=== PATIENT | male | born 1975 | race Two or more races ===

== ENCOUNTER → 2016-10-06 | Outpatient (CLI) | payer OTHER | LOC: BMCIMAGING 09:31 | PROVIDERS: ATTEND Family Medicine | DX: M79.605 Pain in left leg (principal) ==

== ENCOUNTER 2016-10-27 10:15 | Observation (INO) | payer OTHER ==
[~2016-10-27 10:15] MED LIST: ACETAMINOPHEN 500 MG TAB PO ONE; PREGABALIN 150 MG CAP PO ONE; SCOPOLAMINE HYDROBROMIDE 1.5 MG PATCH TD ONE; ceFAZolin 2 GM/DEXTROSE 100 ML IV ONE
[2016-10-27] MEDS ORDERED: LR 1,000 ML IV ONE (10:37)
[2016-10-27] MEDS ORDERED: PREGABALIN 150 MG CAP ONE (10:39)
[2016-10-27] MEDS ORDERED: ACETAMINOPHEN 500 MG TAB ONE (10:39)
[2016-10-27] MEDS ORDERED: CEFAZOLIN 2 GM/DEXTROSE/100 ML BAG IV ONE (10:40)
[2016-10-27] MEDS ORDERED: SCOPOLAMINE HYDROBROMIDE 1.5 MG PATCH TD ONE (10:40)
[2016-10-27] MEDS ORDERED: EPINEPHrine 30 MG/30 ML MDV ONE (12:03)
[2016-10-27] MEDS ORDERED: BUPIVACAINE/EPI 0.25% 30 ML SDV ONE (12:03)
[2016-10-27] MEDS ORDERED: PROPOFOL 200 MG/20 ML VIAL ONE (12:06)
[2016-10-27] MEDS ORDERED: ROCURONIUM 50 MG/5 ML VIAL ONE (12:07)
[2016-10-27] MEDS ORDERED: HYDROmorphONE/DILAUDID 2 MG/ML INJ ONE (12:08)
[2016-10-27] MEDS ORDERED: LIDOCAINE 2% 5 ML SDV ONE (12:08)
[2016-10-27] MEDS ORDERED: MIDAZOLAM 2 MG/2 ML VIAL ONE (12:29)
[2016-10-27] MEDS ORDERED: fentaNYL 250 MCG/5 ML INJ ONE (16:49)
[2016-10-27] MEDS ORDERED: DEXAMETHASONE 4 MG/ML VIAL ONE ×2 (17:29)
[2016-10-27] MEDS ORDERED: ONDANSETRON 4 MG/2 ML VIAL ONE ×2 (17:29→19:35)
[2016-10-27] MEDS ORDERED: SUGAMMADEX SODIUM 200 MG/2 ML VIAL IVP ONE (17:38)
[2016-10-27] MEDS ORDERED: fentaNYL 100 MCG/2 ML INJ ONE (19:01)
[2016-10-27] MEDS ORDERED: HYDROmorphONE/DILAUDID 1 MG/ML SYR ONE (19:42)
[2016-10-27] MEDS ORDERED: ONDANSETRON DISINTEGRATING 4 MG TAB PO PRN (20:58)
[2016-10-27] MEDS ORDERED: ONDANSETRON 4 MG/2 ML VIAL IVP PRN (20:58)
[2016-10-27] MEDS ORDERED: DIAZEPAM 2 MG TAB PO PRN (20:59)
[2016-10-27] MEDS: OXYCODONE/APAP 5/325 TAB PO PRN (22:13)
[2016-10-27] MEDS: NAPROXEN SODIUM 220 MG TAB PO SCH (22:14)
[2016-10-28] MEDS: OXYCODONE/APAP 5/325 TAB PO PRN ×2 (02:01→05:56)
[2016-10-28 03:08] VITALS: O2SAT 96
[2016-10-28] MEDS: NAPROXEN SODIUM 220 MG TAB PO SCH (08:22)
[2016-10-28 08:34] VITALS: BP 104/61; PULSE 60; RESP 14; TEMP 98.1
== END 2016-10-28 11:08 | disposition home or self-care (01) ==
LOC: FSGY 10:15 → F3N 20:22
PROVIDERS: ADMIT Orthopaedic Surgery Sports Medicine; ATTEND Orthopaedic Surgery Sports Medicine
PROC: 0SQ94ZZ Repair Right Hip Joint, Percutaneous Endoscopic Approach (ICD-10-PCS; principal; 2016-10-27 11:30)
DX: M25.851 Other specified joint disorders, right hip (principal); M24.151 Other articular cartilage disorders, right hip
CPT/HCPCS: 29914; 29916; 76001; C1769; G0378; J0690; J1100; J1170; J2250; J2405; J2704; J3010

== ENCOUNTER 2017-06-15 11:34 | Observation (INO) | payer OTHER ==
--- NOTE | 2017-06-11 10:43 | PDGENHP ---
History and Physical - Chief Complaint Left Hip Pain - History of Present Illness 1. Bilateral~Femoroacetabular impingement (MELLO) Mixed type HISTORY OF PRESENT ILLNESS: Yumikois a 42 y.o.~very ~active male~who I have had the pleasure to consult on today. I have enjoyed meeting him. He~lives in [place]. ~[employer] as a [employer]. ~He~is ; he~has 1 daugher. ~Yumikoenjoys Running , Soccer. Shyam's bilateral~hip pain R=L, started 3 years ago, with no~recalled trauma or injury. He has had clicking for 10 years. No~previous complaints. Yumikodoes not have~a known history of hip dysplasia. Presentation today is of anterior, lateral, and posterior bilateral~hip pain. ~ The hip does~wake him~at night and does~click and catch on him. Sitting can be uncomfortable when he goes from sitting to standing. Yumikodoes~report suffering from lower back pain episodes. Yumikohas~participated in physical therapy and has not~tried other conservative measures. He~has not~received sufficient symptomatic improvement. Yumikohas~utilized medication for pain management, including NSAID and OTC acetaminophen. Yumikohas used medication for 3 years. Yumikounderstands that he~has a hip and pelvis problem which should be researched and wishes to get a better understanding of his~hip status, followed by an establishment of a treatment strategy, hoping heJ Carloswould be able to get back to his~well being active life. History: Past medical history: ~ None which is relevant Relevant familial history: None which is relevant Past surgical history: None Yumikohas never received general anesthesia. I have reviewed, verified and agree with the past medical, surgical, family and social history. Current Medications:~currently has no medications in their medication list. ALLERGIES:~has no allergies on file. Objective: Physical Examination: Yumikois 5~feet 7~inches tall and weighs 175~Lbs. Yumikois AAO x3; he~ is well-nourished, in NAD. Skin is warm and dry. ~Breathing is non-labored. ~CV with RRR by pulse. Abdomen is soft, NTND. Currently, he~walks with a normal~gait. Trendelenburg sign is negative~and proprioception is reduced, both~sides. He~presents with no~signs of joint laxity.~Beightons Score: 0 Lower spine examination is negative~for sciatic or femoral nerve irritation with negative~SLR &~femoral stretch tests. Range of motion of the spine is normal~for flexion, extension, and rotations, with~associated pain. Strength, Sensation and pulses are normal - bilaterally Ankles and knees exams are normal~and no~mal-alignment is evident. He~has~right~1~cm short leg length discrepancy. Thigh circumference is symmetric~with no evidence for muscle atrophy~on both~ sides. Hip ROM (degrees): FL ER At 90~hip FL IR At 90~hip FL AB AD EX IR Neutral hip ER Neutral hip R 95 40 -5 25 10 0 5 15 L 90 40 -5 25 10 0 5 15 Specific hip and pelvis tests: Quadrant LEIGH Roll Add. Longus R +++ +++ Negative Negative L +++ +++ Negative Negative Glut. Med ITB Pos. Imp R Negative 5/5 strength Negative 4+/5 strength Negative L Negative 5/5 strength Negative 5/5 strength Negative Squeeze test measured normal Bony Symphysis pubis is painful~to touch while concentric activity of the rectus abdominis, does~produce pain at its insertion on the right. Ilio Psos specific tests are negative for pain during cycling for both hips~and no snap Anterior~capsule tenderness Bilaterally Greater trochanteric burse is pain free~on both hips. Piriformis tests: FAIR is negative, with no~local signs of neuritis related to sciatic nerve. SIJs examination is produces pain on both sides~with abnormal ~~LEIGH~ bilaterally~in relation and local tenderness. Hamstrings tests are negative~functional contraction and negative~tendinopathy bilaterally On a daily basis, the following percentages reflect Shyam's overall total pain: Deep hip: 80% Low Back: 20% Imaging: Radiology studies which I have personally reviewed, analyzed and measured are below: XR: AP of the hip and pelvis: Performed in a suboptimal~technique Coccyx to pubic symphysis distance 0.5~cm. upright [place] Lines are preserved. No~Pathological signs are seen in the Symphysis Pubis. Minimal~Pathological signs are seen at the Ischial tuberosity. ~ Specific measurements show: NSA~ LCE Sourcil~Angle Sharp's angle Lat. Cam Lat. Pincer C.Over~sign Head~Coverage % ATDmm R N 46 0 37 ++ + - N N L N 44 -2 34 ++ + - N N Infero-medial JSN, R>L~~~~~~~~~~ Pos. wall sign ISS NAD ~~Dysplasia Comments R Negative Negative 9.7~mm Negative L Negative Negative 11.0~mm Negative Sclerosis Sup. Lat. OA Cysts Joint Space-WBZ Joint Space-Medial R + + Negative 3.5~mm 3.6~mm L + + Negative 3.3~mm 3.6~mm X Table lateral: Anterior cam lesion is seen~bilaterally Alpha Angle: ~ Right 103~dergrees Left 82~degrees Impression and plan: Shyam~is a 42 y.o.~active male~suffering from symptomatic bilateral~hip pain due to Bilateral~Femoroacetabular impingement (MELLO) Mixed type~causing significant disability to him~and altering his~sport and life activities. Physical examination, imaging, and his~story correspond with the diagnosis mentioned above. I explained that femoroacetabular impingement (MELLO) arises due to a bony or soft tissue conflict between the femur (ball) and acetabulum (socket) caused by an abnormality in the shape of the hip joint. Over time, repetitive impingement can result in damage to the labrum and adjacent surface cartilage within the socket, ultimately giving rise to progressive osteoarthritis of the hip. I explained that although a labral tear can be a source of pain, it is rarely the root of the problem and typically occurs secondary to an underlying abnormality in the shape and mechanics of the hip joint. ~ I reviewed conservative treatment options for MELLO including activity modification to avoid positions of impingement, physical therapy, non-steroidal anti-inflammatory medications, and various injections (corticosteroid and PRP) aimed at reducing inflammation in the hip joint or/and preventing dynamic impingement. PRP injections may promote healing and reduce symptoms in certain cases but it will not repair chronically damaged tissue. Although these measures may help to buy time and reduce current level of symptoms, they are not a definitive solution to the problem given the underlying abnormality in the shape of the hip joint. Patients who have failed conservative management and continue to experience symptoms are candidates for hip arthroscopy, a minimally invasive surgery that can definitively address the underlying problem. Hip arthroscopy typically includes treating the labrum with either debridement, repair, or reconstruction of the torn labrum; as well as addressing the underlying abnormalities by restoring the normal shape to the hip joint. ~If the cartilage is damaged a Microfracture surgical procedure may also be necessary to help stimulate the growth of fibrocartilage. ~If a patient requires a labral reconstruction or a Microfracture, the initial rehabilitation from the surgery may take longer, but the senior living results are typically favorable. I reviewed the technical aspects of hip arthroscopy including risks, benefits, and expected course of recovery. Yumikounderstands that hip arthroscopy is a minimally invasive outpatient procedure carried out through small incisions on the outer aspect of the hip joint. During surgery, the labral tear will be identified and either debrided or repaired using bone anchors and suture material. Additionally, any excessive bone will be removed with a high-speed jackie to reshape the hip joint and restore normal anatomy. Risks include infection, bleeding, injury to nearby nerves or vessels, stiffness, persistent pain, instability, venous thromboembolic disease, and traction related complications including temporary foot numbness. Rarely, revision surgery may be required to address these problems. Overall recovery takes approximately 3 6 months depending on the extent of damage and degree of repair. In the event that the labral tissue quality is inadequate for successful repair and healing, Yumikounderstands that a labral reconstruction will be performed. This procedure entails placing a cadaver tissue graft within the hip joint and stabilizing it with bone anchors to build a new labrum. The overall recovery time for labral reconstruction is similar to that of labral repair, although the surgical procedure takes longer to perform. Yumikowill review the info presented. In order to obtain more detailed information regarding the alignment, orientation, and shape of the bony hip and pelvis I will order a CT scan to be performed. The results of the CT scan, including femoral torsion and acetabular version measured values and 3D images, will aid me in deciding on the best treatment strategy and surgical pre-planning. In order to better evaluate the soft tissues and cartilage of the hip joint, I will order an MRI scan~of the Right hip. Yumikowill talk with our equipment scheduler about possible surgery dates. He is not a candidate for bilateral surgery due to the high chance he will need a labral reconstruction and/or microfracture. He will likely want to schedule his Right hip first. Timing of the Left Hip will depend on what is done during surgery for the Right hip. Yumikois happy with this plan. I have also supplied him~with handouts, outlining the expected surgical treatment and rehab involved. I wish~Yumikoall the best, ~~ Keith Carney MD History Information - Allergies/Home Medication List Allergies/Adverse Reactions: No Known Allergies Allergy (Verified 10/23/16 15:58) I have personally reviewed and updated: medical history - Social History Smoking Status: Former smoker Review of Systems Review of Systems: Physical Exam Physical Exam:
[2017-06-15] MEDS ORDERED: ceFAZolin 2 GM/SWFI 2 GM/20 ML SYR IVP ONE (12:05)
[2017-06-15] MEDS ORDERED: PROPOFOL 200 MG/20 ML VIAL ONE ×2 (12:05→17:06)
[2017-06-15] MEDS ORDERED: PREGABALIN 150 MG CAP PO ONE (12:05)
[2017-06-15] MEDS ORDERED: fentaNYL 250 MCG/5 ML INJ ONE (12:05)
[2017-06-15] MEDS ORDERED: ACETAMINOPHEN 500 MG TAB PO ONE (12:05)
[2017-06-15] MEDS ORDERED: ROCURONIUM 100 MG/10 ML VIAL ONE (12:07)
[2017-06-15] MEDS ORDERED: LIDOCAINE 2% 5 ML SDV ONE (12:07)
[2017-06-15] MEDS ORDERED: DEXAMETHASONE 4 MG/ML VIAL ONE (12:09)
[2017-06-15] MEDS ORDERED: SUGAMMADEX SODIUM 200 MG/2 ML VIAL IVP ONE (12:09)
[2017-06-15] MEDS ORDERED: ONDANSETRON 4 MG/2 ML VIAL ONE ×3 (12:09→20:01)
[2017-06-15] MEDS ORDERED: MIDAZOLAM 2 MG/2 ML VIAL IVP ONE (12:11)
[2017-06-15] MEDS ORDERED: BUPIVACAINE 0.25% 30 ML SDV ONE (12:13)
--- NOTE | 2017-06-15 12:13 | PDANEPAE ---
ANE History of Present Illness left hip MELLO ANE Past Medical History - Cardiovascular History Hx Hypertension: No Hx Arrhythmias: No Hx Chest Pain: No Hx Coronary Artery / Peripheral Vascular Disease: No Hx CHF / Valvular Disease: No Hx Palpitations: No - Pulmonary History Hx COPD: No Hx Asthma/Reactive Airway Disease: No Hx Recent Upper Respiratory Infection: No Hx Oxygen in Use at Home: No Hx Sleep Apnea: No Sleep Apnea Screening Result - Last Documented: Negative - Neurologic History Hx Cerebrovascular Accident: No Hx Seizures: No Hx Dementia: No - Endocrine History Hx Diabetes: No Hypothyroid: No Hyperthyroid: No Obesity: no - Renal History Hx Renal Disorders: No - Liver History Hx Hepatic Disorders: No - Neurological & Psychiatric Hx Hx Neurological and Psychiatric Disorders: Yes Neurological / Psychiatric History Comment: ANXIETY PREV RX USEAGE - Cancer History Hx Cancer: No - Congenital Disorder History Hx Congenital Disorders: Yes Congenital History Comment: FEMORAL IMPINGEMENT,LABRAL TEAR - GI History GERD: no Hx Gastrointestinal Disorders: No - Other Health History Other Health History: wears glasses - Chronic Pain History Chronic Pain: Yes (RT HIP) - Surgical History Prior Surgeries: 2106 right hip arthroplasty acetabuloplasty ANE Review of Systems Review of systems is: negative Review of Systems: - Exercise capacity METS (RN): 6 METS ANE Patient History - Allergies Allergies/Adverse Reactions: No Known Allergies Allergy (Verified 06/15/17 11:52) - Home Medications Home medications: home medication list seen and reviewed Home Medications: NK [No Known Home Meds] 06/15/17 [Last Taken Unknown] - NPO status NPO Since - Liquids (Date): 06/14/17 NPO Since - Liquids (Time): 21:00 NPO Since - Solids (Date): 06/14/17 NPO Since - Solids (Time): 21:00 - Anes Hx Anes Hx: slow to awaken from anesthesia - Smoking Hx Smoking Status: Former smoker - Family Anes Hx Family Anes Hx: none Family Hx Anesthesia Complications: none ANE Labs/Vital Signs - Vital Signs Blood Pressure: 133/86 Heart Rate: 58 Respiratory Rate: 16 O2 Sat (%): 96 Height: 167.64 cm Weight: 77.111 kg ANE Physical Exam - Airway Neck exam: FROM Mallampati Score: Class 1 Mouth exam: normal dental/mouth exam - Pulmonary Pulmonary: no respiratory distress - Cardiovascular Cardiovascular: regular rate and rhythym - ASA Status ASA Status: I ANE Anesthesia Plan Anesthesia Plan: general endotracheal anesthesia
[2017-06-15] MEDS ORDERED: LR 1,000 ML IV ONE (12:29)
[2017-06-15] MEDS ORDERED: LIDOCAINE 1% 2 ML INJ ID PRN (12:29)
[2017-06-15] MEDS ORDERED: HYDROmorphONE/DILAUDID 2 MG/ML INJ ONE (13:52)
[2017-06-15] MEDS ORDERED: LABETALOL HCL 5 MG/ML 20 ML MDV ONE (15:29)
[2017-06-15] MEDS ORDERED: ENALAPRILAT DIHYDRATE 1.25 MG/ML VIAL ONE ×2 (15:29→17:14)
[2017-06-15] MEDS ORDERED: ceFAZolin 1 GM VIAL ONE (16:36)
[2017-06-15] MEDS ORDERED: PROMETHAZINE HCL 25 MG/ML INJ IVP PRN (18:05)
[2017-06-15] MEDS ORDERED: ALBUTEROL 3 ML DEYVIAL IH PRN (18:05)
[2017-06-15] MEDS ORDERED: NALOXONE HCL 0.4 MG/ML INJ IVP PRN (18:05)
[2017-06-15] MEDS ORDERED: ACETAMINOPHEN 500 MG TAB PO PRN (18:05)
[2017-06-15] MEDS ORDERED: fentaNYL 100 MCG/2 ML INJ IVP PRN (18:05)
[2017-06-15] MEDS ORDERED: OXYCODONE/APAP 5/325 TAB PO PRN ×2 (18:05→22:01)
[2017-06-15] MEDS ORDERED: LR 500 ML IV PRN (18:05)
[2017-06-15] MEDS ORDERED: HYDROCODONE/APAP 5/325 TAB PO PRN (18:05)
[2017-06-15] MEDS ORDERED: HYDROmorphONE/DILAUDID 1 MG/ML INJ IVP PRN ×2 (18:05→22:05)
[2017-06-15] MEDS ORDERED: METOCLOPRAMIDE 10 MG/2 ML VIAL IVP PRN (18:05)
--- NOTE | 2017-06-15 18:26 | POSTANESTH ---
Post Anesthetic Evaluation Cardiovascular Status: Normal, Stable Respiratory Status: Normal, Stable Level of Consciousness/Mental Status: Can Participate in Eval Pain Control: Adequate, Prn Tx Ordered Nausea/Vomiting Control: Adequate, Prn Tx Ordered Complications Possibly Related to Anesthesia: None Noted
[2017-06-15] MEDS ORDERED: fentaNYL 100 MCG/2 ML INJ ONE (18:58)
[2017-06-15] MEDS: ONDANSETRON 4 MG/2 ML VIAL IVP PRN ×2 (19:33→20:03)
[2017-06-15] MEDS ORDERED: ONDANSETRON 4 MG/2 ML VIAL IVP PRN (22:01)
[2017-06-15] MEDS ORDERED: ONDANSETRON DISINTEGRATING 4 MG TAB PO PRN (22:01)
[2017-06-15] MEDS ORDERED: PROMETHAZINE HCL 25 MG TAB PO PRN (22:03)
[2017-06-15] MEDS ORDERED: SCOPOLAMINE HYDROBROMIDE 1 MG/3 DAYS PATCH TD SCH (22:15)
[2017-06-16 02:13] VITALS: RESP 16
[2017-06-16 07:20] VITALS: BP 114/61; PULSE 69; TEMP 97.8
--- NOTE | 2017-06-16 10:03 | ASMTCMCOM ---
CM Note CM Note Notes: Met with patient regarding discharge plan of care. Patient states this is his second surgery and feels comfortable discharging home without home health care. Anticipate discharge home today with support of family. Case Management available should needs arise. Date Signed: 06/16/2017 10:03 AM Electronically Signed By:Ghada Ramirez RN
[2017-06-16 10:27] VITALS: O2SAT 97
--- NOTE | 2017-06-16 11:48 | ASDISCHSUM ---
Discharge Information Plan Status:Home with No Needs Medically Cleared to Leave: Discharge Date:06/16/2017 11:33 AM CM D/C Disposition:Home, Routine, Self-Care ADT D/C Disposition:Home, Routine, Self-Care Projected Discharge Date:06/16/2017 11:33 AM Transportation at D/C:Family Discharge Delay Reason: Follow-Up Date:06/16/2017 11:33 AM Discharge Slot: Final Diagnosis: Placement Information Patient Contact Information Contact Name:SHEA Relationship: Address:[facility] Home Phone: City:[place] Alternate Phone: [facility]/Zip Code:[place] [address] Email: Financial Information Financial Class:Allyn Garza Primary Plan Desc:ALLYN NDIAYE HMO OPEN ACC [facility] Primary Plan Number:[id number] Secondary Plan Desc: Secondary Plan Number: Assessment Information [facility] CM Progress Note CM Note CM Note Notes: Met with patient regarding discharge plan of care. Patient states this is his second surgery and feels comfortable discharging home without home health care. Anticipate discharge home today with support of family. Case Management available should needs arise. Date Signed: 06/16/2017 10:03 AM Electronically Signed By:Ghada Ramirez RN Intervention Information
== END 2017-06-16 11:33 | disposition home or self-care (01) ==
LOC: FSGY 11:34 → F3N 22:13
PROVIDERS: ADMIT Orthopaedic Surgery Sports Medicine; ATTEND Orthopaedic Surgery Sports Medicine
PROC: 0SQB4ZZ Repair Left Hip Joint, Percutaneous Endoscopic Approach (ICD-10-PCS; principal; 2017-06-15 12:30)
DX: M25.852 Other specified joint disorders, left hip (principal); M24.152 Other articular cartilage disorders, left hip; M16.12 Unilateral primary osteoarthritis, left hip
CPT/HCPCS: 29914; 29916; 76001; G0378; C1713; J0171; J0690; J1100; J1170; J2250; J2405; J2704; J3010; J3490

== ENCOUNTER 2018-05-15 15:58 | Emergency (ER) | payer OTHER ==
[2018-05-15] MEDS ORDERED: NS 1,000 ML IV ONE (16:29)
--- NOTE | 2018-05-15 16:32 | EDPHY ---
H & P Stated Complaint: started stuttering at wk meeting ~1300 today with tinging on top of head Time Seen by Provider: 05/15/18 16:08 HPI/ROS: CHIEF COMPLAINT: Stuttering HISTORY OF PRESENT ILLNESS: The patient is a 43-year-old Slovenian-speaking healthy man who comes to the emergency department 2 hr after a stuttering episode. He states that he was at work speaking in Slovenian when he suddenly had trouble with stuttering. He was stuttering on every single word. He did not have trouble thinking of the word. He states that he did not have slurred speech. No facial droop or other weakness or deficits. He did describe some tingling at the top of his head. Both of these symptoms resolved after about 30 sec and then returned a few minutes later for another 30 sec. He is now completely asymptomatic. No headache. No nausea vomiting. No chest pain or shortness of breath. Modifying factors: None REVIEW OF SYSTEMS: Constitutional: denies: chills, fever, recent illness, recent injury EENTM: denies: blurred vision, double vision, nose congestion Respiratory: denies: cough, shortness of breath Cardiac: denies: chest pain, irregular heart rate, lightheadedness, palpitations Gastrointestinal/Abdominal: denies: abdominal pain, diarrhea, nausea, vomiting, blood streaked stools Genitourinary: denies: dysuria, frequency, hematuria, pain Musculoskeletal: denies: joint pain, muscle pain Skin: denies: lesions, rash, jaundice, bruising Neurological: See HPI denies: headache, dizziness, weakness Hematologic/Lymphatic: denies: blood clots, easy bleeding, easy bruising Immunologic/allergic: denies: HIV/AIDS, transplant 10 systems reviewed and negative except as noted EXAM: GENERAL: Well-appearing, well-nourished and in no acute distress. HEAD: Atraumatic, normocephalic. EYES: Pupils equal round and reactive to light, extraocular movements intact, sclera anicteric, conjunctiva are normal. ENT: TMs normal, nares patent, oropharynx clear without exudates. Moist mucous membranes. NECK: Normal range of motion, supple without lymphadenopathy or JVD. LUNGS: Breath sounds clear to auscultation bilaterally and equal. No wheezes rales or rhonchi. HEART: Regular rate and rhythm without murmurs, rubs or gallops. ABDOMEN: Soft, nontender, normoactive bowel sounds. No guarding, no rebound. No masses appreciated. BACK: No CVA tenderness, no spinal tenderness, step-offs or deformities EXTREMITIES: Normal range of motion, no pitting or edema. No clubbing or cyanosis. NEUROLOGICAL: Cranial nerves II through XII grossly intact. Normal speech, normal gait. 5/5 strength, normal movement in all extremities, normal sensation , normal reflexes NIH stroke score 0. PSYCH: Normal mood, normal affect. SKIN: Warm, dry, normal turgor, no visible rashes or lesions. Source: Patient Exam Limitations: No limitations - Medical/Surgical History Hx Asthma: No Hx Chronic Respiratory Disease: No Hx Diabetes: No Hx Cardiac Disease: No Hx Renal Disease: No Hx Cirrhosis: No Hx Alcoholism: No Hx HIV/AIDS: No Hx Splenectomy or Spleen Trauma: No Other PMH: hip surgery - Family History Significant Family History: No pertinent family hx - Social History Smoking Status: Never smoked Alcohol Use: Sober Drug Use: None Constitutional: Initial Vital Signs Temperature (C) 36.7 C 05/15/18 16:02 Heart Rate 66 05/15/18 16:02 Respiratory Rate 16 05/15/18 16:02 Blood Pressure 140/81 H 05/15/18 16:02 O2 Sat (%) 98 05/15/18 16:02 O2 Delivery Mode Room Air Allergies/Adverse Reactions: No Known Allergies Allergy (Verified 06/15/17 11:52) Home Medications: Medication Instructions Recorded NK [No Known Home Meds] 06/15/17 Medical Decision Making - Diagnostics Imaging Results: Imaging Impressions Brain MRI 05/15/18 16:29 Impression: There are a few small white matter lesions in the left frontal lobe , which are nonspecific. This could be secondary to gliosis from migraine or trauma or small vessel ischemic disease. Less likely consideration would be postinfectious/postinflammatory etiology. No evidence for an acute infarct. Results called and discussed with Artemio Da Silva M.D., on May 15, 2018 at 1723. Imaging: Discussed imaging studies w/ state inspector Radiologist ED Course/Re-evaluation: 4:30 p.m. I spoke with Dr. Fowler from Neurology. He agrees that this does not really sound like a stroke however because of the language barrier recommends getting an MRI to make sure because sometimes it is difficult to tease out exactly what the patient is describing. The patient does speak Gambian extremely well however his symptoms occurred while he was speaking Slovenian. 6:00 p.m. The patient is relieved by the results. He is eager to go home. He is currently asymptomatic. We discussed follow-up and indications for returning. Differential Diagnosis: Partial list of the Differential diagnosis considered include but were not limited to; TIA, migraine, seizure and although unlikely based on the history and physical exam, I also considered infection, trauma. I discussed these differential diagnoses and the plan with the patient as well as the usual and expected course. The patient understands that the diagnosis is provisional and that in medicine we are not always correct and that further workup is often warranted. Usual and customary warnings were given. All of the patient's questions were answered. The patient was instructed to return to the emergency department should the symptoms at all worsen or return, otherwise to followup with the physician as we discussed. - Data Points Laboratory Results: Laboratory Results 05/15/18 14:18 05/15/18 14:18 18 05/15/18 14:18 14:18 WBC 4.27 10^3/uL 10^3/uL (3.80-9.50) RBC 4.82 10^6/uL 10^6/uL (4.40-6.38) Hgb 14.6 g/dL g/dL (13.7-17.5) Hct 41.7 % % (40.0-51.0) MCV 86.5 fL fL (81.5-99.8) MCH 30.3 pg pg (27.9-34.1) MCHC 35.0 g/dL g/dL (32.4-36.7) RDW 12.3 % % (11.5-15.2) Plt Count 249 10^3/uL 10^3/uL (150-400) MPV 9.6 fL fL (8.7-11.7) Neut % (Auto) 61.8 % % (39.3-74.2) Lymph % (Auto) 31.6 % % (15.0-45.0) Gonzales % (Auto) 5.2 % % (4.5-13.0) Eos % (Auto) 0.7 % % (0.6-7.6) Baso % (Auto) 0.5 % % (0.3-1.7) Nucleat RBC Rel Count 0.0 % % (0.0-0.2) Absolute Neuts (auto) 2.64 10^3/uL 10^3/uL (1.70-6.50) Absolute Lymphs (auto) 1.35 10^3/uL 10^3/uL (1.00-3.00) Absolute Monos (auto) 0.22 10^3/uL L 10^3/uL (0.30-0.80) Absolute Eos (auto) 0.03 10^3/uL 10^3/uL (0.03-0.40) Absolute Basos (auto) 0.02 10^3/uL 10^3/uL (0.02-0.10) Absolute Nucleated RBC 0.00 10^3/uL 10^3/uL (0-0.01) Immature Gran % 0.2 % % (0.0-1.1) Immature Gran # 0.01 10^3/uL 10^3/uL (0.00-0.10) Sodium 142 mEq/L mEq/L (135-145) Potassium 3.9 mEq/L mEq/L (3.3-5.0) Chloride 104 mEq/L mEq/L (97-110) Carbon Dioxide 28 mEq/l mEq/l (22-31) Anion Gap 10 mEq/L mEq/L (6-14) BUN 16 mg/dL mg/dL (7-23) Creatinine 0.9 mg/dL mg/dL (0.7-1.3) Estimated GFR > 60 Glucose 106 mg/dL H mg/dL (70-100) Calcium 9.7 mg/dL mg/dL (8.5-10.4) Medications Given: Discontinued Medications Sodium Chloride (Ns) 1,000 mls @ 0 mls/hr IV ONCE ONE; Wide Open PRN Reason: Protocol Stop: 05/15/18 16:30 Last Admin: 05/15/18 16:39 Dose: 1,000 mls Departure - Departure Disposition: Home, Routine, Self-Care Clinical Impression: Stutter Condition: Fair Instructions: Magnetic Resonance Imaging (ED) Referrals: Sam Ramirez MD [Primary Care Provider] - 5-7 days, call for appt.
[2018-05-15 16:37] LABS: PLATELET COUNT 249 10^3/uL (150-400)
[2018-05-15 17:49] VITALS: BP 123/73
== END 2018-05-15 17:54 | disposition home or self-care (01) ==
DX: R47.81 Slurred speech (principal); E86.9 Volume depletion, unspecified

== ENCOUNTER → 2018-07-02 | Outpatient (CLI) | payer OTHER ==
--- NOTE | 2018-07-02 11:35 | CPEEG ---
DATES OF STUDY: July 02. DATE OF INTERPRETATION: July 02. INTERPRETATION: Normal EEG during wakefulness and sleep. There were no potentially epileptogenic ab normalities present during the recording. REPORT: This EEG contains 10 Hz alpha activity to the posterior head regions. The background activi ty was normal and symmetric. There was no abnormal activation at rest, during photic stimulation or hyperventilation. The patient became drowsy and fell asleep during the recording. There was no abno rmal activation during drowsiness, sleep, or during times of arousal. /[id number]/[id number]
== END ==
LOC: FCPNEURO 07:48
PROVIDERS: ATTEND Psychiatry & Neurology Neurology
DX: F80.81 Childhood onset fluency disorder (principal)

== ENCOUNTER → 2018-08-22 | Outpatient (CLI) | payer OTHER | LOC: BMCIMAGING 13:48 → MERGE 13:48 | PROVIDERS: ATTEND Family Medicine | DX: M79.661 Pain in right lower leg (principal) ==